=== PATIENT | female | born 2000 | race Caucasian/White ===

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

== ENCOUNTER 2019-07-19 13:53 | Emergency (ER) | payer MEDICAID ==
[~2019-07-19] VITALS: Ht 165 cm; Wt 69.8 kg
[2019-07-19 14:32] LABS: BASOPHILS % (AUTO) 0 % (0-10); EOSINOPHILS # (AUTO) 0.1 10^3/uL (0.0-0.3); EOSINOPHILS % (AUTO) 1 % (0-10); HEMATOCRIT 38 % (35-52); LYMPHOCYTES # (AUTO) 1.8 X 10^3 (1.0-4.0); LYMPHOCYTES % (AUTO) 19 % (12-44); MEAN CORPUSCULAR HEMOGLOBIN 30 PG (25-34); MEAN CORPUSCULAR HGB CONC 34 G/DL (32-36); MEAN CORPUSCULAR VOLUME 88 FL (80-99); MEAN PLATELET VOLUME 9.9 FL (7.4-10.4); MONOCYTES # (AUTO) 1.1 X 10^3 (0.0-1.0); MONOCYTES % (AUTO) 11 % (0-12); NEUTROPHILS # (AUTO) 6.4 X 10^3 (1.8-7.8); NEUTROPHILS % (AUTO) 69 % (42-75); PLATELET COUNT 285 10^3/uL (130-400); WHITE BLOOD COUNT 9.3 10^3/uL (4.3-11.0)
[2019-07-19 14:40] LABS: BACTERIA,URINE LARGE /HPF; BILIRUBIN,URINE NEGATIVE (NEGATIVE); CLARITY,URINE SL CLOUDY; COLOR,URINE YELLOW; GLUCOSE, URINE (UA) NEGATIVE (NEGATIVE); KETONES,URINE NEGATIVE (NEGATIVE); LEUKOCYTE ESTERASE ,URINE 3+ (NEGATIVE); NITRITE,URINE POSITIVE (NEGATIVE); PH,URINE 5 (5-9); PROTEIN,URINE 1+ (NEGATIVE); RBC,URINE RARE /HPF; UROBILINOGEN,URINE NORMAL (NORMAL); WBC,URINE 50-100 /HPF
[2019-07-19 14:47] LABS: ALANINE AMINOTRANSFERASE 18 U/L (0-55); ALBUMIN 4.3 GM/DL (3.2-4.5); ALKALINE PHOSPHATASE 90 U/L (40-136); BILIRUBIN,TOTAL 1.2 MG/DL (0.1-1.0); BUN/CREATININE RATIO 12; CALCIUM 9.2 MG/DL (8.5-10.1); CARBON DIOXIDE 27 MMOL/L (21-32); CHLORIDE 102 MMOL/L (98-107); CREATININE SERUM 0.67 MG/DL (0.60-1.30); GFR ESTIMATED > 60; GLUCOSE 78 MG/DL (70-105); POTASSIUM 3.5 MMOL/L (3.6-5.0); SODIUM 136 MMOL/L (135-145); TOTAL PROTEIN 7.5 GM/DL (6.4-8.2)
--- NOTE | 2019-07-19 15:28 | ED GU-Female ---
General Chief Complaint: Abdominal/GI Problems Stated Complaint: L SIDE PAIN Nursing Triage Note: PATIENT HERE BY POV FOR CONCERNS ABOUT LEFT LOWER QUADRANT PAIN THAT RAD TO HER BACK. SHE HAS TAKEN IBUPROFEN AND TYLENOL FOR THE PAIN. THE PAIN COMES AND GOES. SHE NORMALLY HAS BM DAILY BUT HAS NOT HAD ONE IN 2 DAYS. SHE STATES SHE RECENTLY HAD A YEAST INFECTION AND FINISHED ANTIBIOTICS FOR THAT A WEEK AGO. SHE ADMITS TO FOUL SMELLING AND DARK URINE AND BURNING WITH URINATION. Nursing Sepsis Screen: No Definite Risk Source: patient Exam Limitations: no limitations History of Present Illness Date Seen by Provider: Jul 19, 2019 Time Seen by Provider: 15:28 Initial Comments 19-year-old female patient presents with complaints of left lower quadrant pain radiating into her right flank and right back. Patient reports taking ibuprofen and Tylenol for pain earlier today. Pain is intermittent. Patient reports not having a bowel movement for 2 days. Patient was recently treated for a urinary tract infection and vaginal yeast infection. She does report also having a pelvic exam with cultures done at [facility] 1 week ago. Patient states the pelvic CULTURES were negative. she does c/o foul smelling, dark urine. also c/o dysuria. Timing/Duration: yesterday, intermittent Severity/Quality: aching, sharp Location: LLQ Radiation: back, left flank Activities at Onset: none Sexual [place] History: less than 2 months ago Modifying Factors: Worsens With Movement, Worsens With Palpation Allergies and Home Medications Allergies Coded Allergies: Penicillins (Unverified Allergy, Severe, 11/05/18) Home Medications Cephalexin 500 Mg Capsule, 500 MG PO TID Prescribed by: HA HOANG on 12/25/172043 Cephalexin 500 Mg Tablet, 500 MG PO QID Prescribed by: KEVYN BA on 07/19/19 162 Fluconazole 100 Mg Tablet, 100 MG PO UD 2 tabs po x 1 dose, then 1 tab po daily. Prescribed by: KEVYN BA on 07/19/19 162 Ondansetron 4 Mg Tab.rapdis, 4 MG PO Q6H PRN for NAUSEA/VOMITING Prescribed by: KEVYN BA on 07/19/19 162 Phenazopyridine HCl 100 Mg Tablet, 100 MG PO TID PRN for pain Prescribed by: KEVYN BA on 07/19/19 162 Sulfamethoxazole/Trimethoprim 1 Each Tablet, 1 EACH PO BID Prescribed by: HA HOANG on 12/25/172043 Sulfamethoxazole/Trimethoprim 1 Each Tablet, 1 EACH PO BID Prescribed by: DENITA SAEED on 11/05/18 0124 Patient Home Medication List Home Medication List Reviewed: Yes Review of Systems Review of Systems Constitutional: no symptoms reported EENTM: no symptoms reported Respiratory: No cough, No phlegm, No short of breath, No wheezing Cardiovascular: No chest pain, No palpitations, No syncope Gastrointestinal: see HPI, abdominal pain, constipation; No diarrhea, No hematemesis; loss of appetite, nausea; No vomiting Genitourinary: see HPI Musculoskeletal: see HPI Skin: no symptoms reported Psychiatric/Neurological: No Symptoms Reported All Other Systemes Reviewed Negative Unless Noted: Yes (Negative excepted noted.) Past Emwxkol-Tknzia-Zvltmo Hx Past Med/Social Hx: Reviewed Nursing Past Med/Soc Hx Patient Social History Alcohol Use: Denies Use Recreational Drug Use: No Smoking Status: Current Everyday Smoker Type Used: Cigarettes 2nd Hand Smoke Exposure: Yes Recent Foreign Travel: No Contact w/Someone Who Travel: No Recent Infectious Disease Expo: No Recent Hopitalizations: No Physical Abuse: No Sexual Abuse: No Immunizations Up To Date PED Vaccines UTD: Yes Seasonal Allergies Seasonal Allergies: No Past Medical History Surgeries: No Respiratory: No Cardiac: No Neurological: No : No Reproductive Disorders: No Female Reproductive Disorders: Denies Sexually Transmitted Disease: No HIV/AIDS: No Genitourinary: No Gastrointestinal: No Musculoskeletal: No Endocrine: No HEENT: No Cancer: No Psychosocial: Yes Anxiety, Bipolar, Depression Integumentary: No Blood Disorders: No Adverse Reaction/Blood Tranf: No Family Medical History Reviewed Nursing Family Hx Colon cancer 19 MOTHER (LIVER CANCER) Diabetes mellitus 19 MOTHER Hypertension 19 MOTHER No Family History of: AIDS Abdominal aortic aneurysm [place]'s disease Alcoholism Alzheimer's disease Aphasia Arthritis Asthma Cancer of mouth Cardiovascular disease Cataracts Completed stroke Congenital disease Congenital heart disease Coronary thrombosis Cystic fibrosis Deafness or hearing loss Dementia Drug abuse Dysphasia Fibrocystic disease of breast Gastroenteritis Glaucoma Headache disorder Hypercholesterolemia Infertility Kidney disease Myocardial infarction Neoplasm Not obtainable due to adoption Osteoporosis Parkinson's disease Prostate cancer Psychosocial problem Respiratory disorder Seizure disorder Severe allergy Thyroid disease Tuberculosis Visual disorder No Pertinent Family Hx Physical Exam Vital Signs Vital Signs - First Documented 07/19/19 14:09 Temp 36.9 Pulse 94 Resp 18 B/P (MAP) 122/76 (91) Pulse Ox 99 Capillary Refill : Less Than 3 Seconds Height, Weight, BMI Height: 5'5.00" Weight: 130lbs. oz. 58.700740lj; 25.00 BMI Method:Stated General Appearance: WD/WN, no apparent distress HEENT: PERRL/EOMI, pharynx normal Neck: supple, normal inspection Cardiovascular: normal peripheral pulses, regular rate, rhythm, no edema, no gallop, no murmur Respiratory: lungs clear, normal breath sounds, no respiratory distress, no accessory muscle use Gastrointestinal: normal bowel sounds, soft, no organomegaly; No distended; guarding (LLQ, LUQ, and left flank); No rebound; tenderness (LLQ, LUQ, and left flank); No hernia, No mass Back: normal inspection, no vertebral tenderness; No CVA tenderness (R); CVA tenderness (L) Extremities: no pedal edema, no calf tenderness, normal capillary refill Neurologic/Psychiatric: alert, normal mood/affect, oriented x 3 Skin: normal color, warm/dry Progress/Results/Core Measures Suspected Sepsis Recent Fever Within 48 Hours: No Infection Criteria Present: Suspected New Infection New/Unexplained Altered Menta: No Sepsis Screen: No Definite Risk SIRS Temperature: Pulse: 94 Respiratory Rate: 18 Laboratory Tests 07/19/19 14:20: White Blood Count 9.3 Blood Pressure 122 /76 Mean: 91 Laboratory Tests 07/19/19 14:20: Creatinine 0.67, Platelet Count 285, Total Bilirubin 1.2H Results/Orders Lab Results Laboratory Tests Test 07/19/19 14:15 07/19/19 14:20 Range/Units Urine Color YELLOW Urine Clarity [place] CL[place]DY Urine pH 5 5-9 Urine Specific [place] 1.015 L 1.016-1.022 Urine Protein 1+ H NEGATIVE Urine Glucose (UA) NEGATIVE NEGATIVE Urine Ketones NEGATIVE NEGATIVE Urine Nitrite POSITIVE H NEGATIVE Urine Bilirubin NEGATIVE NEGATIVE Urine Urobilinogen NORMAL NORMAL MG/DL Urine Leukocyte Esterase 3+ H NEGATIVE Urine RBC (Auto) 2+ H NEGATIVE Urine RBC RARE /HPF Urine WBC 50-100 H /HPF Urine Squamous Epithelial Cells 5-10 /HPF Urine Crystals NONE /LPF Urine Bacteria LARGE H /HPF Urine Casts NONE /LPF Urine Mucus NEGATIVE /LPF Urine Culture Indicated YES Urine Test NEGATIVE NEGATIVE White Blood Count 9.3 4.3-11.0 10^3/uL Red Blood Count 4.35 4.35-5.85 10^6/uL Hemoglobin 13.0 11.5-16.0 G/DL Hematocrit 38 35-52 % Mean Corpuscular Volume 88 80-99 FL Mean Corpuscular Hemoglobin 30 25-34 PG Mean Corpuscular Hemoglobin Concent 34 32-36 G/DL Red Cell Distribution Width 12.0 10.0-14.5 % Platelet Count 285 130-400 10^3/uL Mean Platelet Volume 9.9 7.4-10.4 FL Neutrophils (%) (Auto) 69 42-75 % Lymphocytes (%) (Auto) 19 12-44 % Monocytes (%) (Auto) 11 0-12 % Eosinophils (%) (Auto) 1 0-10 % Basophils (%) (Auto) 0 0-10 % Neutrophils # (Auto) 6.4 1.8-7.8 X 10^3 Lymphocytes # (Auto) 1.8 1.0-4.0 X 10^3 Monocytes # (Auto) 1.1 H 0.0-1.0 X 10^3 Eosinophils # (Auto) 0.1 0.0-0.3 10^3/uL Basophils # (Auto) 0.0 0.0-0.1 10^3/uL Sodium Level 136 135-145 MMOL/L Potassium Level 3.5 L 3.6-5.0 MMOL/L Chloride Level 102 98-107 MMOL/L Carbon Dioxide Level 27 21-32 MMOL/L Anion Gap 7 5-14 MMOL/L Blood Urea Nitrogen 8 7-18 MG/DL Creatinine 0.67 0.60-1.30 MG/DL Estimat Glomerular Filtration Rate > 60 BUN/Creatinine Ratio 12 Glucose Level 78 70-105 MG/DL Calcium Level 9.2 8.5-10.1 MG/DL Corrected Calcium 9.0 8.5-10.1 MG/DL Total Bilirubin 1.2 H 0.1-1.0 MG/DL Aspartate Amino Transf (AST/SGOT) 18 5-34 U/L Alanine Aminotransferase (ALT/SGPT) 18 0-55 U/L Alkaline Phosphatase 90 40-136 U/L Total Protein 7.5 6.4-8.2 GM/DL Albumin 4.3 3.2-4.5 GM/DL My Orders Orders - KEVYN BA Ua Culture If Indicated (07/19/19 14:20) Hcg,Qualitative Urine (07/19/19 14:26) Ed Iv/Invasive Line Start (07/19/19 14:27) Cbc With Automated Diff (07/19/19 14:27) Comprehensive Metabolic Panel (07/19/19 14:27) Urine Culture (07/19/19 14:15) Ct Abd/Pelvis Wo(Kidney Stone) (07/19/19 15:39) Ns Iv 1000 Ml (Sodium Chloride 0.9%) (07/19/19 15:39) Ondansetron Injection (Zofran Injectio (07/19/19 15:45) Ketorolac Injection (Toradol Injection) (07/19/19 15:39) Medications Given in ED Current Medications Medications Dose Ordered Sig/Jose Route Start Time Stop Time Status Last Admin Dose Admin Ondansetron HCl 4 mg ONCE ONCE IVP 07/19/19 15:45 07/19/19 15:46 DC 07/19/19 15:46 4 MG Sodium Chloride 1,000 ml @ 0 mls/hr Q0M ONCE IV 07/19/19 15:39 07/19/19 15:42 DC 07/19/19 15:46 0 MLS/HR Vital Signs/I&O 07/19/19 07/19/19 14:09 16:39 Temp 36.9 36.9 Pulse 94 94 Resp 18 18 B/P (MAP) 122/76 (91) 122/76 (91) Pulse Ox 99 99 Capillary Refill : Less Than 3 Seconds Blood Pressure Mean: 91 Diagnostic Imaging Diagonstic Imaging: CT Plain Films/CT/US/NM/MRI: abdomen, pelvis Comments Date of Exam:07/19/19 CT ABD/PELVIS WO(KIDNEY STONE) PROCEDURE: CT urinary tract, rule out kidney stone. TECHNIQUE: Multiple contiguous axial images were obtained through the abdomen and pelvis without the use of intravenous contrast. Auto Exposure Controls were utilized during the CT exam to meet ALARA standards for radiation dose reduction. INDICATION: Left lower quadrant pain Lung bases are clear. Liver appears normal. Gallbladder is surgically absent. Pancreas appears normal. Spleen is not enlarged. Adrenals are normal. Kidneys appear normal. Small bowel is not dilated. The colon appears normal. There is no intraperitoneal free air or free fluid. Uterus is present. Adnexa are unremarkable. IMPRESSION: No acute abnormality seen in the abdomen or pelvis Dictated by: Dictated on workstation # [id number] Reviewed: Reviewed by Me (radiology report reviewed by me) Departure Communication (Admissions) Patient seen and evaluated. Lab and a CT abdomen/pelvis obtained. Diagnostic and laboratory findings discussed with the patient. Patient reports improvement in symptoms with medications and fluids. Plan for discharge to home with follow-up as an outpatient with her primary care provider. Impression Primary Impression: Urinary tract infection Qualified Codes: N30.00 - Acute cystitis without hematuria Additional Impressions: Candidal vulvovaginitis Abdominal pain, left lateral Disposition: HOME, SELF-CARE Condition: Improved Departure-Patient Inst. Decision time for Depature: 16:17 Referrals: [facility] (PCP/Family) Primary Care Physician Patient Instructions: Acute Abdomen (Belly Pain), Adult (DC), Control Options, Condom Options, Urinary Tract Infection, Adult (DC), Yeast Infection (DC) Add. Discharge Instructions: All discharge instructions reviewed with patient and/or family. Voiced understanding. Medications as directed. Tylenol over the counter as directed for pain. Ibuprofen 600 mg by mouth every 6-8 hours as needed for pain. Colace stool softener 2-3 times per day as needed for constipation. Eat a high fiber diet. Drink plenty of fluids. Follow-up with your family practitioner for recheck and to discuss contraceptive options as an outpatient. Call Monday morning for an appointment time. Return to the emergency department for worsened symptoms or any other concerns. Scripts Fluconazole (Fluconazole) 100 Mg Tablet 100 MG PO UD, #11 TAB 0 Refills 2 tabs po x 1 dose, then 1 tab po daily. Prov: KEVYN BA 07/19/19 Cephalexin (Cephalexin) 500 Mg Tablet 500 MG PO QID, #14 TAB 0 Refills Prov: KEVYN BA 07/19/19 Ondansetron (Ondansetron Odt) 4 Mg Tab.rapdis 4 MG PO Q6H PRN for NAUSEA/VOMITING, #8 TAB 0 Refills Prov: KEVYN BA 07/19/19 Phenazopyridine HCl (Pyridium) 100 Mg Tablet 100 MG PO TID PRN for pain, #14 TAB 0 Refills Prov: KEVYN BA 07/19/19 KEVYN BA Jul 19, 2019 15:28
[2019-07-19] MEDS ORDERED: KETOROLAC 30 MG/ML VIAL IVP STA (15:39)
[2019-07-19] MEDS ORDERED: NS IV 1000 ML 1,000 ML IV ONE (15:39)
[2019-07-19] MEDS ORDERED: ONDANSETRON 4 MG/2 ML (SDV) Z0FRAN IVP ONE (15:45)
--- NOTE | 2019-07-19 16:12 | Diagnostic Imaging Report ---
PROCEDURE: CT urinary tract, rule out kidney stone. TECHNIQUE: Multiple contiguous axial images were obtained through the abdomen and pelvis without the use of intravenous contrast. Auto Exposure Controls were utilized during the CT exam to meet ALARA standards for radiation dose reduction. INDICATION: Left lower quadrant pain Lung bases are clear. Liver appears normal. Gallbladder is surgically absent. Pancreas appears normal. Spleen is not enlarged. Adrenals are normal. Kidneys appear normal. Small bowel is not dilated. The colon appears normal. There is no intraperitoneal free air or free fluid. Uterus is present. Adnexa are unremarkable. IMPRESSION: No acute abnormality seen in the abdomen or pelvis Dictated by: Dictated on workstation # [id number]
[2019-07-19] MEDS ORDERED: PHEN-639 PO (16:20)
[2019-07-19] MEDS ORDERED: CEPH500T PO ×2 (16:20→16:21)
[2019-07-19] MEDS ORDERED: ONDA4TAB11 PO (16:20)
[2019-07-19] MEDS ORDERED: FLUC100T6 PO (16:21)
[2019-07-19 16:39] VITALS: BP 122/76
== END 2019-07-19 16:43 | disposition home or self-care (01) ==
LOC: EDUNIT# 13:53 → ER 13:55
DX: N39.0 Urinary tract infection, site not specified (principal); B37.3 Candidiasis of vulva and vagina; F41.9 Anxiety disorder, unspecified; F31.9 Bipolar disorder, unspecified; F17.210 Nicotine dependence, cigarettes, uncomplicated; Z88.0 Allergy status to penicillin; Z80.0 Family history of malignant neoplasm of digestive organs; Z82.49 Family history of ischemic heart disease and other diseases of the circulatory system
CPT/HCPCS: 36415; 74176; 80053; 81000; 84703; 85025; 87077; 87088; 87186; 96361; 96374; 96375

== ENCOUNTER 2019-10-05 15:06 | Emergency (ER) | payer MEDICAID ==
[~2019-10-05] VITALS: Ht 167 cm; Wt 71.2 kg
[~2019-10-05 15:06] MED LIST changes: +CEPH500T PO; +FLUC100T6 PO; +ONDA4TAB11 PO; +PHEN-639 PO
[2019-10-05 15:32] LABS: BILIRUBIN,URINE NEGATIVE (NEGATIVE); CLARITY,URINE CLEAR; COLOR,URINE YELLOW; GLUCOSE, URINE (UA) NEGATIVE (NEGATIVE); KETONES,URINE NEGATIVE (NEGATIVE); LEUKOCYTE ESTERASE ,URINE NEGATIVE (NEGATIVE); NITRITE,URINE NEGATIVE (NEGATIVE); PROTEIN,URINE NEGATIVE (NEGATIVE)
[2019-10-05 15:38] LABS: BACTERIA,URINE TRACE /HPF; WBC,URINE RARE /HPF
--- NOTE | 2019-10-05 15:38 | ED GU-Female ---
General Stated Complaint: VOMITING / ABD PAIN Source: patient Exam Limitations: no limitations History of Present Illness Date Seen by Provider: Oct 05, 2019 Time Seen by Provider: 15:33 Initial Comments To ER with vomiting, periumbilical abdominal cramping that feels similar. Pains, she is on her menstrual period. She also has some right flank pain and nausea since last night. Timing/Duration: just prior to arrival Severity/Quality: moderate Radiation: none Activities at Onset: none Prior Genitourinary Problems: none Associated Symptoms: abdominal pain; No dysuria; nausea/vomiting Allergies and Home Medications Allergies Coded Allergies: Penicillins (Unverified Allergy, Severe, 11/05/18) Home Medications Cephalexin 500 Mg Capsule, 500 MG PO TID Prescribed by: HA HOANG on 12/25/172043 Cephalexin 500 Mg Tablet, 500 MG PO QID Prescribed by: KEVYN BA on 07/19/191620 Fluconazole 100 Mg Tablet, 100 MG PO UD 2 tabs po x 1 dose, then 1 tab po daily. Prescribed by: KEVYN BA on 07/19/19 162 Ondansetron 4 Mg Tab.rapdis, 4 MG PO Q6H PRN for NAUSEA/VOMITING Prescribed by: KEVYN BA on 07/19/19 162 Phenazopyridine HCl 100 Mg Tablet, 100 MG PO TID PRN for pain Prescribed by: KEVYN BA on 07/19/19 162 Sulfamethoxazole/Trimethoprim 1 Each Tablet, 1 EACH PO BID Prescribed by: HA HOANG on 12/25/172043 Sulfamethoxazole/Trimethoprim 1 Each Tablet, 1 EACH PO BID Prescribed by: DENITA SAEED on 11/05/18 0124 Patient Home Medication List Home Medication List Reviewed: Yes Review of Systems Review of Systems Constitutional: see HPI EENTM: see HPI Respiratory: no symptoms reported Cardiovascular: no symptoms reported Genitourinary: see HPI Musculoskeletal: no symptoms reported Skin: no symptoms reported Psychiatric/Neurological: No Symptoms Reported Past Cakilqa-Cmobac-Ohwiqq Hx Patient Social History Type Used: Cigarettes 2nd Hand Smoke Exposure: Yes Recent Foreign Travel: No Contact w/Someone Who Travel: No Recent Hopitalizations: No Immunizations Up To Date PED Vaccines UTD: Yes Seasonal Allergies Seasonal Allergies: No Past Medical History Surgeries: No Respiratory: No Cardiac: No Neurological: No Reproductive Disorders: No Female Reproductive Disorders: Denies Sexually Transmitted Disease: No HIV/AIDS: No Genitourinary: No Gastrointestinal: No Musculoskeletal: No Endocrine: No HEENT: No Cancer: No Psychosocial: Yes Anxiety, Bipolar, Depression Integumentary: No Blood Disorders: No Adverse Reaction/Blood Tranf: No Family Medical History Colon cancer 19 MOTHER (LIVER CANCER) Diabetes mellitus 19 MOTHER Hypertension 19 MOTHER No Family History of: AIDS Abdominal aortic aneurysm Adal's disease Alcoholism Alzheimer's disease Aphasia Arthritis Asthma Cancer of mouth Cardiovascular disease Cataracts Completed stroke Congenital disease Congenital heart disease Coronary thrombosis Cystic fibrosis Deafness or hearing loss Dementia Drug abuse Dysphasia Fibrocystic disease of breast Gastroenteritis Glaucoma Headache disorder Hypercholesterolemia Infertility Kidney disease Myocardial infarction Neoplasm Not obtainable due to adoption Osteoporosis Parkinson's disease Prostate cancer Psychosocial problem Respiratory disorder Seizure disorder Severe allergy Thyroid disease Tuberculosis Visual disorder No Pertinent Family Hx Physical Exam Vital Signs Vital Signs - First Documented 10/05/19 15:15 Temp 37.0 Pulse 84 Resp 14 B/P (MAP) 118/83 (95) Pulse Ox 98 O2 Delivery Room Air Capillary Refill : Height, Weight, BMI Height: 5'5.00" Weight: 130lbs. oz. 58.154194uz; 25.00 BMI Method:Stated General Appearance: WD/WN, no apparent distress Neck: non-tender, full range of motion Respiratory: no respiratory distress, no accessory muscle use Gastrointestinal: normal bowel sounds, non tender, soft Extremities: normal range of motion, non-tender Neurologic/Psychiatric: alert, normal mood/affect, oriented x 3 Skin: normal color, warm/dry Progress/Results/Core Measures Suspected Sepsis SIRS Temperature: Pulse: Respiratory Rate: Laboratory Tests 10/05/19 15:37: White Blood Count 9.8 Blood Pressure / Mean: Laboratory Tests 10/05/19 15:37: Creatinine 0.69, Platelet Count 315, Total Bilirubin 1.5H Results/Orders Lab Results Laboratory Tests Test 10/05/19 15:21 10/05/19 15:37 Range/Units Urine Color YELLOW Urine Clarity CLEAR Urine pH 7.0 5-9 Urine Specific [place] 1.020 1.016-1.022 Urine Protein NEGATIVE NEGATIVE Urine Glucose (UA) NEGATIVE NEGATIVE Urine Ketones NEGATIVE NEGATIVE Urine Nitrite NEGATIVE NEGATIVE Urine Bilirubin NEGATIVE NEGATIVE Urine Urobilinogen 0.2 < = 1.0 MG/DL Urine Leukocyte Esterase NEGATIVE NEGATIVE Urine RBC (Auto) 3+ H NEGATIVE Urine RBC 2-5 H /HPF Urine WBC RARE /HPF Urine Squamous Epithelial Cells 2-5 /HPF Urine Crystals NONE /LPF Urine Bacteria TRACE /HPF Urine Casts NONE /LPF Urine Mucus SMALL H /LPF Urine Culture Indicated NO Urine Test NEGATIVE NEGATIVE White Blood Count 9.8 4.3-11.0 10^3/uL Red Blood Count 4.75 4.35-5.85 10^6/uL Hemoglobin 13.9 11.5-16.0 G/DL Hematocrit 42 35-52 % Mean Corpuscular Volume 87 80-99 FL Mean Corpuscular Hemoglobin 29 25-34 PG Mean Corpuscular Hemoglobin Concent 34 32-36 G/DL Red Cell Distribution Width 12.7 10.0-14.5 % Platelet Count 315 130-400 10^3/uL Mean Platelet Volume 10.1 7.4-10.4 FL Neutrophils (%) (Auto) 67 42-75 % Lymphocytes (%) (Auto) 22 12-44 % Monocytes (%) (Auto) 9 0-12 % Eosinophils (%) (Auto) 1 0-10 % Basophils (%) (Auto) 0 0-10 % Neutrophils # (Auto) 6.6 1.8-7.8 X 10^3 Lymphocytes # (Auto) 2.2 1.0-4.0 X 10^3 Monocytes # (Auto) 0.9 0.0-1.0 X 10^3 Eosinophils # (Auto) 0.1 0.0-0.3 10^3/uL Basophils # (Auto) 0.0 0.0-0.1 10^3/uL Sodium Level 137 135-145 MMOL/L Potassium Level 4.0 3.6-5.0 MMOL/L Chloride Level 105 98-107 MMOL/L Carbon Dioxide Level 21 21-32 MMOL/L Anion Gap 11 5-14 MMOL/L Blood Urea Nitrogen 11 7-18 MG/DL Creatinine 0.69 0.60-1.30 MG/DL Estimat Glomerular Filtration Rate > 60 BUN/Creatinine Ratio 16 Glucose Level 104 70-105 MG/DL Calcium Level 9.1 8.5-10.1 MG/DL Corrected Calcium 8.8 8.5-10.1 MG/DL Total Bilirubin 1.5 H 0.1-1.0 MG/DL Aspartate Amino Transf (AST/SGOT) 16 5-34 U/L Alanine Aminotransferase (ALT/SGPT) 14 0-55 U/L Alkaline Phosphatase 77 40-136 U/L Total Protein 7.2 6.4-8.2 GM/DL Albumin 4.4 3.2-4.5 GM/DL My Orders Orders - HA HOANG APRN Hcg,Qualitative Urine (10/05/19 15:31) Cbc With Automated Diff (10/05/19 15:31) Comprehensive Metabolic Panel (10/05/19 15:31) Ondansetron Oral Dissolve Tab (Zofran (10/05/19 15:45) Drug Screen Stat (Urine) (10/05/19 16:11) Medications Given in ED Current Medications Medications Dose Ordered Sig/Jose Route Start Time Stop Time Status Last Admin Dose Admin Ondansetron HCl 8 mg ONCE ONCE PO 10/05/19 15:45 10/05/19 15:46 DC 10/05/19 15:41 8 MG Vital Signs/I&O 10/05/19 15:15 Temp 37.0 Pulse 84 Resp 14 B/P (MAP) 118/83 (95) Pulse Ox 98 O2 Delivery Room Air Capillary Refill : Departure Impression Primary Impression: Nausea Additional Impression: Menstrual pain Disposition: 01 HOME, SELF-CARE Condition: Improved Departure-Patient Inst. Decision time for Depature: 16:13 Referrals: [facility] (PCP/Family) Primary Care Physician Patient Instructions: Menstrual Cramps (DC), Nausea and Vomiting, Adult Add. Discharge Instructions: . Tylenol and ibuprofen for pain control 2. Return to ER for any concerns 3. Follow-up with your doctor next week Scripts Ondansetron (Ondansetron Odt) 4 Mg Tab.rapdis 4 MG PO Q6H PRN for NAUSEA/VOMITING, #8 TAB 0 Refills Prov: HA HOANG APRN 10/05/19 HA HOANG APRN Oct 05, 2019 15:38
[2019-10-05 15:45] LABS: BASOPHILS % (AUTO) 0 % (0-10); EOSINOPHILS # (AUTO) 0.1 10^3/uL (0.0-0.3); EOSINOPHILS % (AUTO) 1 % (0-10); HEMATOCRIT 42 % (35-52); HEMOGLOBIN 13.9 G/DL (11.5-16.0); LYMPHOCYTES # (AUTO) 2.2 X 10^3 (1.0-4.0); LYMPHOCYTES % (AUTO) 22 % (12-44); MEAN CORPUSCULAR HEMOGLOBIN 29 PG (25-34); MEAN CORPUSCULAR HGB CONC 34 G/DL (32-36); MEAN CORPUSCULAR VOLUME 87 FL (80-99); MEAN PLATELET VOLUME 10.1 FL (7.4-10.4); MONOCYTES # (AUTO) 0.9 X 10^3 (0.0-1.0); MONOCYTES % (AUTO) 9 % (0-12); NEUTROPHILS # (AUTO) 6.6 X 10^3 (1.8-7.8); NEUTROPHILS % (AUTO) 67 % (42-75); PLATELET COUNT 315 10^3/uL (130-400); RED CELL DISTRIBUTION WIDTH 12.7 % (10.0-14.5); WHITE BLOOD COUNT 9.8 10^3/uL (4.3-11.0)
[2019-10-05] MEDS ORDERED: ONDANSETRON 4 MG (ZOFRAN) ORAL DISSOLVE TAB PO ONE (15:45)
[2019-10-05 16:04] LABS: ALANINE AMINOTRANSFERASE 14 U/L (0-55); ALBUMIN 4.4 GM/DL (3.2-4.5); ALKALINE PHOSPHATASE 77 U/L (40-136); BILIRUBIN,TOTAL 1.5 MG/DL (0.1-1.0); BUN/CREATININE RATIO 16; CALCIUM 9.1 MG/DL (8.5-10.1); CARBON DIOXIDE 21 MMOL/L (21-32); CHLORIDE 105 MMOL/L (98-107); CREATININE SERUM 0.69 MG/DL (0.60-1.30); GFR ESTIMATED > 60; GLUCOSE 104 MG/DL (70-105); SODIUM 137 MMOL/L (135-145); TOTAL PROTEIN 7.2 GM/DL (6.4-8.2)
[2019-10-05] MEDS ORDERED: ONDA4TAB11 PO (16:14)
[2019-10-05 16:21] VITALS: BP 118/83
[2019-10-05 16:30] LABS: AMPHETAMINE SCREEN, URINE POSITIVE (NEGATIVE); BARBITURATE SCREEN URINE NEGATIVE (NEGATIVE); BENZODIAZEPINES SCREEN URINE NEGATIVE (NEGATIVE); CANNABINOID SCREEN, URINE POSITIVE (NEGATIVE); COCAINE SCREEN URINE NEGATIVE (NEGATIVE); METHADONE STAT NEGATIVE (NEGATIVE); METHAMPHETAMINE SCREEN URINE S POSITIVE (NEGATIVE); OPIATE SCREEN URINE NEGATIVE (NEGATIVE); OXYCODONE STAT NEGATIVE (NEGATIVE); PROPOXYPHENE STAT NEGATIVE (NEGATIVE); TRICYCLIC ANTIDEPRESSANTS SCRE NEGATIVE (NEGATIVE)
== END 2019-10-05 16:22 | disposition home or self-care (01) ==
LOC: EDUNIT# 15:06 → ER 15:07
DX: N94.6 Dysmenorrhea, unspecified (principal); R11.2 Nausea with vomiting, unspecified; F41.9 Anxiety disorder, unspecified; F31.9 Bipolar disorder, unspecified; Z88.0 Allergy status to penicillin; Z77.22 Contact with and (suspected) exposure to environmental tobacco smoke (acute) (chronic); Z82.49 Family history of ischemic heart disease and other diseases of the circulatory system; Z80.0 Family history of malignant neoplasm of digestive organs
CPT/HCPCS: 36415; 80053; 80306; 81000; 84703; 85025; 99283

== ENCOUNTER 2023-05-29 15:23 | Inpatient (IN) | payer MEDICAID ==
[~2023-05-29] VITALS: Ht 168 cm; Wt 65.2 kg
[~2023-05-29 15:23] MED LIST changes: +ARIP15TA20; -ARIP15TA9; +FLUC100T10 PO; -FLUC100T6 PO; -FLUO20CA25; +FLUO20CA48; -SULF1TAB35 PO; +SULF1TAB38 PO
--- NOTE | 2023-05-29 15:51 | ED EENT ---
History of Present Illness General Chief Complaint: Dental Problems/Pain Stated Complaint: SORE THROAT Nursing Triage Note: PT AMB TO [facility] PT CO OF DENTAL PAIN ON L LOWER JAW, STATES HAS APPT FOR 06/07 FOR DENTIST PT L SIDE FACE SWOLLEN, WARM AND PAINFUL 04/17 Source: patient Exam Limitations: no limitations (JON GUTIERREZ APRN) History of Present Illness Date Seen by Provider: May 29, 2023 Time Seen by Provider: 15:40 Initial Comments 23-year-old female presents to the ER with complaint of left-sided facial swelling. She has been dealing with left lower dental pain for the last week. She was prescribed an antibiotic on 05/24/2023 which she has been taking. She reports that the swelling increased significantly since yesterday. The area is hard to the touch and warm to the touch. She reports difficulty swallowing. She denies known fevers. States she has been using ice packs, and taking Tylenol and ibuprofen as well as the antibiotic. She called Dr. Choe, oral maxillofacial surgeon, who said he can see her tomorrow, but states that will cost her $600 upfront and she does not have the money for this. (JON GUTIERREZ APRN) Initial Comments Patient was admitted to [facility] last week and saw last week, recommended surgery but patient wanted to see the dentist at [facility] due to cost. Patient on Clindamycin outpatient. (FANNY MURRELL) Allergies and Home Medications Allergies Coded Allergies: Penicillins (Unverified Allergy, Severe, 11/05/18) Patient Home Medication List Home Medication List Reviewed: Yes (JON GUTIERREZ APRN) Clindamycin HCl (Clindamycin HCl) 150 Mg Capsule, 300 MG PO QID, (Reported) Entered as Reported by: ALLYSON BORJA on 05/30/23950 Last Action: Reviewed Ibuprofen (Ibuprofen) 600 Mg Tablet, 600 MG PO Q8H PRN for PAIN-MILD (1-4), (Reported) Entered as Reported by: ALLYSON BORJA on 05/30/23950 Last Action: Reviewed Norethindrone (Rachel-Be) 0.35 Mg Tablet, 1 EA PO DAILY, (Reported) Entered as Reported by: ALLYSON BORJA on 8/22/23 0951 Last Action: Reviewed Discontinued Medications Aripiprazole (Aripiprazole) 15 Mg Tablet, (Reported) Discontinued Reason: No Longer Taking Entered as Reported by: RAGHU CASTRO on 12/25/171945 Last Action: Discontinued Cephalexin (Keflex) 500 Mg Capsule, 500 MG PO TID Discontinued Reason: No Longer Taking Prescribed by: HA HOANG on 12/25/172043 Last Action: Discontinued Cephalexin (Cephalexin) 500 Mg Tablet, 500 MG PO QID Discontinued Reason: No Longer Taking Prescribed by: KEVYN BA on 07/19/191620 Last Action: Discontinued Fluconazole (Fluconazole) 100 Mg Tablet, 100 MG PO UD Discontinued Reason: No Longer Taking Prescribed by: KEVYN BA on 07/19/191620 Last Action: Discontinued Fluoxetine HCl (Fluoxetine HCl) 20 Mg Capsule, (Reported) Discontinued Reason: No Longer Taking Entered as Reported by: RAGHU CASTRO on 12/25/171945 Last Action: Discontinued Ondansetron (Ondansetron Odt) 4 Mg Tab.rapdis, 4 MG PO Q6H PRN for NAUSEA/VOMITING Discontinued Reason: No Longer Taking Prescribed by: KEVYN BA on 07/19/191619 Last Action: Discontinued Ondansetron (Ondansetron Odt) 4 Mg Tab.rapdis, 4 MG PO Q6H PRN for NAUSEA/VOMITING Discontinued Reason: No Longer Taking Prescribed by: HA HOANG on 10/05/191613 Last Action: Discontinued Phenazopyridine HCl (Pyridium) 100 Mg Tablet, 100 MG PO TID PRN for pain Discontinued Reason: No Longer Taking Prescribed by: KEVYN BA on 07/19/191619 Last Action: Discontinued Sulfamethoxazole/Trimethoprim (Bactrim Ds Tablet) 1 Each Tablet, 1 EACH PO BID Discontinued Reason: No Longer Taking Prescribed by: HA HOANG on 12/25/172043 Last Action: Discontinued Sulfamethoxazole/Trimethoprim (Bactrim Ds Tablet) 1 Each Tablet, 1 EACH PO BID Discontinued Reason: No Longer Taking Prescribed by: DENITA SAEED on 11/05/18123 Last Action: Discontinued Review of Systems Review of Systems Constitutional: see HPI Mouth: see HPI (JON GUTIERREZ APRN) All Other Systems Reviewed Negative Unless Noted: Yes (FANNY MURRELL) Past Fsunraj-Uuscch-Tqbsgf Hx Patient Social History Tobacco Use?: No Substance use?: No Alcohol Use?: No Pt feels they are or have been: No (JON GUTIERREZ APRN) Immunizations Up To Date PED Vaccines UTD: Yes (JON GUTIERREZ APRN) Seasonal Allergies Seasonal Allergies: No (JON GUTIERREZ APRN) Past Medical History Surgery/Hospitalization HX: PELVIC SURG, ABD SURG, Surgeries: No Gallbladder Respiratory: No Cardiac: No Neurological: No Reproductive Disorders: No Female Reproductive Disorders: Denies Sexually Transmitted Disease: No HIV/AIDS: No Genitourinary: No Gastrointestinal: No Musculoskeletal: No Endocrine: No HEENT: No Cancer: No Psychosocial: Yes Anxiety, Bipolar, Depression Integumentary: No Blood Disorders: No Adverse Reaction/Blood Tranf: No (JON GUTIERREZ APRN) Family Medical History Reviewed Nursing Family Hx (FANNY MURRELL) Colon cancer 19 MOTHER (LIVER CANCER) Diabetes mellitus 19 MOTHER Hypertension 19 MOTHER No Family History of: AIDS Abdominal aortic aneurysm Burleigh's disease Alcoholism Alzheimer's disease Aphasia Arthritis Asthma Cancer of mouth Cardiovascular disease Cataracts Completed stroke Congenital disease Congenital heart disease Coronary thrombosis Cystic fibrosis Deafness or hearing loss Dementia Drug abuse Dysphasia Fibrocystic disease of breast Gastroenteritis Glaucoma Headache disorder Hypercholesterolemia Infertility Kidney disease Myocardial infarction Neoplasm Not obtainable due to adoption Osteoporosis Parkinson's disease Prostate cancer Psychosocial problem Respiratory disorder Seizure disorder Severe allergy Thyroid disease Tuberculosis Visual disorder No Pertinent Family Hx (JON GUTIERREZ APRN) Physical Exam Vital Signs Vital Signs - First Documented 05/29/23 15:29 Temp 36.7 Pulse 102 Resp 18 B/P (MAP) 109/76 (87) Pulse Ox 97 Height, Weight, BMI Height: 5'5.00" Weight: 130lbs. oz. 58.500393vo; 25.00 BMI Method:Stated General Appearance: WD/WN, no apparent distress Mouth/Throat: dental tenderness, other (Port intention, abscess noted to molar, significant swelling, erythema, induration of left lower jaw) Neck: supple, normal inspection Cardiovascular: regular rate, rhythm Respiratory: lungs clear, normal breath sounds, no respiratory distress, no accessory muscle use Neurologic/Psychiatric: alert, normal mood/affect Skin: normal color, warm/dry (JON GUTIERREZ APRN) Vital Signs Vital Signs - First Documented 05/29/23 15:29 Temp 36.7 Pulse 102 Resp 18 B/P (MAP) 109/76 (87) Pulse Ox 97 (HANDYFANNY Cleaning) Progress/Results/Core Measures Results/Orders Lab Results Laboratory Tests Test 05/29/23 16:05 Range/Units White Blood Count 16.2 H 4.3-11.0 10^3/uL Red Blood Count 4.56 3.80-5.11 10^6/uL Hemoglobin 13.5 11.5-16.0 g/dL Hematocrit 41 35-52 % Mean Corpuscular Volume 91 80-99 fL Mean Corpuscular Hemoglobin 30 25-34 pg Mean Corpuscular Hemoglobin Concent 33 32-36 g/dL Red Cell Distribution Width 12.8 10.0-14.5 % Platelet Count 392 130-400 10^3/uL Mean Platelet Volume 9.2 9.0-12.2 fL Immature Granulocyte % (Auto) 1 % Neutrophils (%) (Auto) 75 42-75 % Lymphocytes (%) (Auto) 16 12-44 % Monocytes (%) (Auto) 7 0-12 % Eosinophils (%) (Auto) 1 0-10 % Basophils (%) (Auto) 0 0-10 % Neutrophils # (Auto) 12.2 H 1.8-7.8 10^3/uL Lymphocytes # (Auto) 2.6 1.0-4.0 10^3/uL Monocytes # (Auto) 1.1 H 0.0-1.0 10^3/uL Eosinophils # (Auto) 0.2 0.0-0.3 10^3/uL Basophils # (Auto) 0.1 0.0-0.1 10^3/uL Immature Granulocyte # (Auto) 0.1 0.0-0.1 10^3/uL Neutrophils % (Manual) 74 % Lymphocytes % (Manual) 18 % Monocytes % (Manual) 5 % Eosinophils % (Manual) 2 % Basophils % (Manual) 1 % Platelet Estimate ADEQUATE Blood Morphology Comment NORMAL Sodium Level 139 135-145 MMOL/L Potassium Level 4.0 3.6-5.0 MMOL/L Chloride Level 104 98-107 MMOL/L Carbon Dioxide Level 27 21-32 MMOL/L Anion Gap 8 5-14 MMOL/L Blood Urea Nitrogen 8 7-18 MG/DL Creatinine 0.71 0.60-1.30 MG/DL Estimat Glomerular Filtration Rate 122 BUN/Creatinine Ratio 11 Glucose Level 93 70-105 MG/DL Lactic Acid Level 0.69 0.50-2.00 MMOL/L Calcium Level 9.6 8.5-10.1 MG/DL Corrected Calcium 9.5 8.5-10.1 MG/DL Total Bilirubin 1.1 H 0.1-1.0 MG/DL Aspartate Amino Transf (AST/SGOT) 14 5-34 U/L Alanine Aminotransferase (ALT/SGPT) 26 0-55 U/L Alkaline Phosphatase 77 40-136 U/L Total Protein 7.1 6.4-8.2 GM/DL Albumin 4.1 3.2-4.5 GM/DL Serum Test, Qualitative NEGATIVE NEGATIVE My Orders Orders - JON GUTIERREZ APRN Ct Neck (Soft Tissue) W (05/29/23 15:55) Cbc With Automated Diff (05/29/23 15:55) Comprehensive Metabolic Panel (05/29/23 15:55) Blood Culture (05/29/23 15:55) Ed Iv/Invasive Line Start (05/29/23 15:55) Vital Signs Adult Sepsis Patie Q15M (05/29/23 15:55) Lactic Acid Analyzer (05/29/23 15:55) Ns Iv 1000 Ml (Sodium Chloride 0.9%) (05/29/23 16:00) Monitor-Rhythm Ecg Trace Only (05/29/23 16:02) Manual Differential (05/29/23 16:05) Iohexol Injection (Omnipaque 350 Mg/Ml 1 (05/29/23 16:45) Ns (Ivpb) 100 Ml (Sodium Chloride 0.9% 1 (05/29/23 16:45) Dexamethasone Injection (Dexamethasone (05/29/23 16:45) Ceftriaxone Injection (Ceftriaxone Injec (05/29/23 17:00) Metronidazole 500mg/100ml Ivpb (Metronid (05/29/23 17:00) Medications Given in ED Current Medications Medications Dose Ordered Sig/Jose Route Start Time Stop Time Status Last Admin Dose Admin Ceftriaxone Sodium 2000 mg/ Sodium Chloride 50 ml @ 100 mls/hr ONCE ONCE IV 05/29/23 17:00 05/29/23 17:29 DC 05/29/23 17:16 100 MLS/HR Dexamethasone Sodium Phosphate 10 mg ONCE ONCE IV 05/29/23 16:45 05/29/23 16:46 DC 05/29/23 17:16 10 MG Iohexol 100 ml ONCE ONCE IV 05/29/23 16:45 05/29/23 16:46 DC 05/29/23 16:45 75 ML Metronidazole 100 ml @ 100 mls/hr ONCE ONCE IV 05/29/23 17:00 05/29/23 17:59 DC 05/29/23 17:16 100 MLS/HR Sodium Chloride 100 ml ONCE ONCE IV 05/29/23 16:45 05/29/23 16:46 DC 05/29/23 16:45 80 ML Vital Signs/I&O 05/29/23 05/29/23 15:29 19:10 Temp 36.7 Pulse 102 87 Resp 18 20 B/P (MAP) 109/76 (87) 126/82 Pulse Ox 97 99 Blood Pressure Mean: 87 (JON GUTIERREZ APRN) Lab Results Laboratory Tests Test 05/29/23 16:05 Range/Units White Blood Count 16.2 H 4.3-11.0 10^3/uL Red Blood Count 4.56 3.80-5.11 10^6/uL Hemoglobin 13.5 11.5-16.0 g/dL Hematocrit 41 35-52 % Mean Corpuscular Volume 91 80-99 fL Mean Corpuscular Hemoglobin 30 25-34 pg Mean Corpuscular Hemoglobin Concent 33 32-36 g/dL Red Cell Distribution Width 12.8 10.0-14.5 % Platelet Count 392 130-400 10^3/uL Mean Platelet Volume 9.2 9.0-12.2 fL Immature Granulocyte % (Auto) 1 % Neutrophils (%) (Auto) 75 42-75 % Lymphocytes (%) (Auto) 16 12-44 % Monocytes (%) (Auto) 7 0-12 % Eosinophils (%) (Auto) 1 0-10 % Basophils (%) (Auto) 0 0-10 % Neutrophils # (Auto) 12.2 H 1.8-7.8 10^3/uL Lymphocytes # (Auto) 2.6 1.0-4.0 10^3/uL Monocytes # (Auto) 1.1 H 0.0-1.0 10^3/uL Eosinophils # (Auto) 0.2 0.0-0.3 10^3/uL Basophils # (Auto) 0.1 0.0-0.1 10^3/uL Immature Granulocyte # (Auto) 0.1 0.0-0.1 10^3/uL Neutrophils % (Manual) 74 % Lymphocytes % (Manual) 18 % Monocytes % (Manual) 5 % Eosinophils % (Manual) 2 % Basophils % (Manual) 1 % Platelet Estimate ADEQUATE Blood Morphology Comment NORMAL Sodium Level 139 135-145 MMOL/L Potassium Level 4.0 3.6-5.0 MMOL/L Chloride Level 104 98-107 MMOL/L Carbon Dioxide Level 27 21-32 MMOL/L Anion Gap 8 5-14 MMOL/L Blood Urea Nitrogen 8 7-18 MG/DL Creatinine 0.71 0.60-1.30 MG/DL Estimat Glomerular Filtration Rate 122 BUN/Creatinine Ratio 11 Glucose Level 93 70-105 MG/DL Lactic Acid Level 0.69 0.50-2.00 MMOL/L Calcium Level 9.6 8.5-10.1 MG/DL Corrected Calcium 9.5 8.5-10.1 MG/DL Total Bilirubin 1.1 H 0.1-1.0 MG/DL Aspartate Amino Transf (AST/SGOT) 14 5-34 U/L Alanine Aminotransferase (ALT/SGPT) 26 0-55 U/L Alkaline Phosphatase 77 40-136 U/L Total Protein 7.1 6.4-8.2 GM/DL Albumin 4.1 3.2-4.5 GM/DL Serum Test, Qualitative NEGATIVE NEGATIVE My Orders Orders - HANDY,FANNY PHYSICAL SECURITY MANAGER Fentanyl Injection (Fentanyl Injection (05/29/23 17:26) Fentanyl Injection (Fentanyl Injection (05/29/23 17:26) Ua Culture If Indicated (05/29/23 18:19) Hcg,Qualitative Serum (05/29/23 18:25) Medications Given in ED Current Medications Medications Dose Ordered Sig/Jose Route Start Time Stop Time Status Last Admin Dose Admin Ceftriaxone Sodium 2000 mg/ Sodium Chloride 50 ml @ 100 mls/hr ONCE ONCE IV 05/29/23 17:00 05/29/23 17:29 DC 05/29/23 17:16 100 MLS/HR Dexamethasone Sodium Phosphate 10 mg ONCE ONCE IV 05/29/23 16:45 05/29/23 16:46 DC 05/29/23 17:16 10 MG Iohexol 100 ml ONCE ONCE IV 05/29/23 16:45 05/29/23 16:46 DC 05/29/23 16:45 75 ML Metronidazole 100 ml @ 100 mls/hr ONCE ONCE IV 05/29/23 17:00 05/29/23 17:59 DC 05/29/23 17:16 100 MLS/HR Sodium Chloride 100 ml ONCE ONCE IV 05/29/23 16:45 05/29/23 16:46 DC 05/29/23 16:45 80 ML Vital Signs/I&O 05/29/23 15:29 Temp 36.7 Pulse 102 Resp 18 B/P (MAP) 109/76 (87) Pulse Ox 97 (FANNY MURRELL) Progress Progress Note : Progress Note Seen and evaluated, resting comfortably in recliner, no acute distress. I am concerned for Ludewig's angina. Work-up initiated including CBC, CMP, lactic acid, blood cultures x2. CT of the neck and IV fluids ordered. 1637 Labs reviewed. CBC shows elevated WBC 16.2. CMP grossly normal. Lactic acid normal. Waiting on CT. Care handed off to Fanny Murrell APRN at this time. (JON GUTIERREZ APRN) Progress Note : Progress Note [address] results reviewed by myself and Dr. Moore. Patient receiving Flagyl and Rocephin. 1715 requesting additional pain medication, will give Fentanly 50 mcg IV. Continues to swallow liquids or soft foods without difficulty. [address] Choe for consult, awaiting return call [address] Choe, agreeable to have her admitted here with plan to I&D Abscess tomorrow. Dr. Milligan agreeable to admit, Anesthesia to consult. 1830 Anesthesia (Syd Norton CRNA) here to see patient. Reports pain improved, a fter receiving Fentanyl. 1845 Dr. Milligan her to see patient. (FANNY MURRELL) Diagnostic Imaging Diagonstic Imaging: CT Plain Films/CT/US/NM/MRI: other (neck, soft tissue) Comments NAME: YEN LUNDY MED REC#: [id number] PT STATUS: REG ER : 2000 PHYSICIAN: JON GUTIERREZ APRN ADMIT DATE: 05/29/23/ER Draft Date of Exam:05/29/23 CT NECK (SOFT TISSUE) W PROCEDURE: CT neck soft tissue with contrast. TECHNIQUE: Multiple contiguous axial images were obtained through the neck after the administration of contrast. Auto Exposure Controls were utilized during the CT exam to meet ALARA standards for radiation dose reduction. INDICATION: Left-sided neck swelling. COMPARISON: None available. FINDINGS: There is a 1.8 x 0.9 cm rim-enhancing fluid collection along the lingual surface of the left mandibular ramus near the roots of the mandibular molars. However, no periapical lucencies are noted. Dental caries are present in the left maxillary molar. Extensive soft tissue swelling and subcutaneous stranding is also present overlying the buccal surface of the left mandibular ramus. No additional fluid collections within the neck. Enlarged left level I and level II cervical lymph nodes are likely reactive in nature. The bilateral submandibular and parotid glands are normal in appearance. Thyroid is normal. Lung apices are clear. No retropharyngeal fluid collection. Cervical spine is normal in appearance. IMPRESSION: 1. Dental caries involving the left second mandibular molar have associated fluid collection along the lingual surface of the left hemimandible that is likely an abscess. Dictated on workstation # [id number] Dict: 05/29/23 1651 Trans: 05/29/23 165 [id number] Interpreted by: LALI LEE MD Electronically signed by: Reviewed: Reviewed by Me (FANNY MURRELL) Departure Impression Primary Impression: Submandibular abscess Disposition: ADMITTED INPATIENT Condition: Stable Admissions Decision to Admit/Date: May 29, 2023 Time/Decision to Admit Time: 17:00 (FANNY MURRELL) Departure-Patient Inst. Referrals: [facility] (PCP/Family) Primary Care Physician JON GUTIERREZ APRN May 29, 2023 15:51 FANNY MURRELL May 29, 2023 17:35
[2023-05-29] MEDS ORDERED: NS IV 1000 ML 1,000 ML IV SCH (16:00)
[2023-05-29 16:16] LABS: BASOPHILS # (AUTO) 0.1 10^3/uL (0.0-0.1); BASOPHILS % (AUTO) 0 % (0-10); EOSINOPHILS # (AUTO) 0.2 10^3/uL (0.0-0.3); EOSINOPHILS % (AUTO) 1 % (0-10); HEMATOCRIT 41 % (35-52); HEMOGLOBIN 13.5 g/dL (11.5-16.0); LYMPHOCYTES # (AUTO) 2.6 10^3/uL (1.0-4.0); LYMPHOCYTES % (AUTO) 16 % (12-44); MEAN CORPUSCULAR HEMOGLOBIN 30 pg (25-34); MEAN CORPUSCULAR HGB CONC 33 g/dL (32-36); MEAN CORPUSCULAR VOLUME 91 fL (80-99); MEAN PLATELET VOLUME 9.2 fL (9.0-12.2); MONOCYTES # (AUTO) 1.1 10^3/uL (0.0-1.0); MONOCYTES % (AUTO) 7 % (0-12); NEUTROPHILS # (AUTO) 12.2 10^3/uL (1.8-7.8); NEUTROPHILS % (AUTO) 75 % (42-75); PLATELET COUNT 392 10^3/uL (130-400); WHITE BLOOD COUNT 16.2 10^3/uL (4.3-11.0)
[2023-05-29 16:25] LABS: ALBUMIN 4.1 GM/DL (3.2-4.5)
[2023-05-29 16:27] LABS: CALCIUM 9.6 MG/DL (8.5-10.1)
[2023-05-29 16:28] LABS: TOTAL PROTEIN 7.1 GM/DL (6.4-8.2)
[2023-05-29 16:29] LABS: BILIRUBIN,TOTAL 1.1 MG/DL (0.1-1.0)
[2023-05-29 16:31] LABS: CREATININE SERUM 0.71 MG/DL (0.60-1.30)
[2023-05-29] MEDS ORDERED: dexAMETHasone INJ 10 MG/ML 1 ML VIAL IV ONE (16:45)
[2023-05-29] MEDS ORDERED: IOHEXOL 350 MG/ML 100 ML (OMNIPAQUE 350) VIAL IV ONE (16:45)
[2023-05-29] MEDS ORDERED: NS 100 ML (IVPB) BAG IV ONE (16:45)
[2023-05-29 16:56] LABS: BASOPHILS % (MANUAL) 1 %; EOSINOPHILS % (MANUAL) 2 %; LYMPHOCYTES % (MANUAL) 18 %; MONOCYTES % (MANUAL) 5 %; NEUTROPHILS % (MANUAL) 74 %; PLATELET ESTIMATE ADEQUATE; RBC MORPH NORMAL
--- NOTE | 2023-05-29 16:58 | Diagnostic Imaging Report ---
PROCEDURE: CT neck soft tissue with contrast. TECHNIQUE: Multiple contiguous axial images were obtained through the neck after the administration of contrast. Auto Exposure Controls were utilized during the CT exam to meet ALARA standards for radiation dose reduction. INDICATION: Left-sided neck swelling. COMPARISON: None available. FINDINGS: There is a 1.8 x 0.9 cm rim-enhancing fluid collection along the lingual surface of the left mandibular ramus near the roots of the mandibular molars. However, no periapical lucencies are noted. Dental caries are present in the left maxillary molar. Extensive soft tissue swelling and subcutaneous stranding is also present overlying the buccal surface of the left mandibular ramus. No additional fluid collections within the neck. Enlarged left level I and level II cervical lymph nodes are likely reactive in nature. The bilateral submandibular and parotid glands are normal in appearance. Thyroid is normal. Lung apices are clear. No retropharyngeal fluid collection. Cervical spine is normal in appearance. IMPRESSION: 1. Dental caries involving the left second mandibular molar have associated fluid collection along the lingual surface of the left hemimandible that is likely an abscess. Dictated by: Dictated on workstation # [id number]
[2023-05-29] MEDS ORDERED: metroNIDAZOLE 500MG/100ML IVPB 100 ML IV ONE (17:00)
[2023-05-29] MEDS ORDERED: cefTRIAXone INJECTION 2,000 MG in NS (IVPB) 50 ML 50 ML IV ONE (17:00)
[2023-05-29] MEDS ORDERED: cefTRIAXone 2,000 MG VIAL ONE (17:09)
[2023-05-29] MEDS ORDERED: fentaNYL INJECTION 100 MCG/2 ML VIAL ONE (17:26)
[2023-05-29] MEDS ORDERED: fentaNYL INJECTION 100 MCG/2 ML VIAL IVP STA (17:26)
[2023-05-29] MEDS ORDERED: ONDANSETRON 4 MG ORAL DISSOLVE TABLET PO PRN (20:45)
[2023-05-29] MEDS ORDERED: LACTULOSE SYRUP 10GM/15ML 30ML UDC PO PRN (20:45)
[2023-05-29] MEDS ORDERED: ONDANSETRON INJECTION 4 MG/2 ML (SDV) IV PRN (20:45)
[2023-05-29] MEDS ORDERED: ACETAMINOPHEN 325 MG TABLET PO PRN (20:45)
[2023-05-29] MEDS ORDERED: BISACODYL 10 MG SUPPOSITORY PR PRN (20:45)
[2023-05-29] MEDS ORDERED: MELATONIN 3 MG TABLET PO PRN (20:45)
[2023-05-29] MEDS ORDERED: HYDROmorphone INJECTION 2 MG/ML VIAL IV PRN (20:45)
[2023-05-29] MEDS ORDERED: diphenhydrAMINE 25 MG TABLET PO PRN (20:45)
[2023-05-29] MEDS ORDERED: ANTACID SUSPENSION 30 ML UDC PO PRN (20:45)
[2023-05-29] MEDS ORDERED: VANCOMYCIN INJECTION 0.1 MG in NS (IVPB) 250 ML 250 ML IV SCH (20:45)
[2023-05-29] MEDS ORDERED: CALCIUM CARBONATE 500 MG CHEW TABLET PO PRN (20:45)
[2023-05-29] MEDS ORDERED: MILK OF MAGNESIA 400 MG/5 ML 30 ML UDC PO PRN (20:45)
[2023-05-29] MEDS ORDERED: LORazepam 0.5 MG TABLET PO PRN (20:45)
[2023-05-29] MEDS ORDERED: diphenhydrAMINE INJ 50 MG/ML VIAL IVP PRN (20:45)
[2023-05-29 20:55] VITALS: BP 132/89
[2023-05-29] MEDS ORDERED: oxyCODONE IMMEDIATE RELEASE 5 MG TABLET ONE (21:00)
[2023-05-29 21:01] VITALS: BP 154/86
[2023-05-29] MEDS: oxyCODONE IMMEDIATE RELEASE 5 MG TABLET PO PRN (21:03)
--- NOTE | 2023-05-29 21:08 | History & Physical-Hospitalist ---
History of Present Illness HPI/Chief Complaint CC: Submandibular abscess in need of IV abx and I&D HPI: This is a 23yoWF w/h/o mental illness who presented to the ER with left facial swelling. Patient had been on my service at [facility] last week for IV abx then saw Dr Choe who recommended I&D but patient declined but the facial swelling had worsened so she will be placed on Meropenem and Vanc and Flagyl and undergo I&D tomorrow by Dr Choe. Source: patient Exam Limitations: clinical condition Date Seen 05/29/23 Time Seen by a Provider: 19:00 Attending Physician [place] PCP Admitting Physician: Kelsey Milligan DO Attending Physician: Kelsey Milligan DO Referring Physician Date of Admission May 29, 2023 at 20:42 Home Medications & Allergies Home Medications Reviewed patient Home Medication Reconciliation performed by pharmacy medication reconciliations cartographic technician and/or nursing. Patients Allergies have been reviewed. Allergies Allergies Coded Allergies Penicillins (Unverified Allergy, Severe, 11/05/18) Past Semutlt-Fjqijg-Yqajft Hx Patient Social History Marrital Status: cohabiting Employed/Student: unemployed Tobacco Use?: Yes Tobacco type used: Cigars Smoking Status: Current Everyday Smoker Use of E-Cig and/or Vaping dev: No Substance use?: No Alcohol Use?: No Pt feels they are or have been: No Immunizations Up To Date Tetanus Booster (TDap): Less Than 5 Years PED Vaccines UTD: Yes Seasonal Allergies Seasonal Allergies: No Current Status status: No status: No Advance Directives: No Communicates: Verbally Primary Language: Grenadian Preferred Spoken Language: Grenadian Is interpretation needed?: No Implanted or Applied Medical D: Orthopedic hardware Past Medical History Surgeries: Gallbladder Sexually Transmitted Disease: No HIV/AIDS: No Anxiety, Bipolar, Depression Blood Disorders: No Adverse Reaction/Blood Tranf: No Family Medical History Colon cancer 19 MOTHER (LIVER CANCER) Diabetes mellitus 19 MOTHER Hypertension 19 MOTHER No Family History of: AIDS Abdominal aortic aneurysm [place]'s disease Alcoholism Alzheimer's disease Aphasia Arthritis Asthma Cancer of mouth Cardiovascular disease Cataracts Completed stroke Congenital disease Congenital heart disease Coronary thrombosis Cystic fibrosis Deafness or hearing loss Dementia Drug abuse Dysphasia Fibrocystic disease of breast Gastroenteritis Glaucoma Headache disorder Hypercholesterolemia Infertility Kidney disease Myocardial infarction Neoplasm Not obtainable due to adoption Osteoporosis Parkinson's disease Prostate cancer Psychosocial problem Respiratory disorder Seizure disorder Severe allergy Thyroid disease Tuberculosis Visual disorder No Pertinent Family Hx Review of Systems Constitutional: see HPI Physical Exam Physical Exam Vital Signs Vital Signs - First Documented 05/29/23 05/29/23 15:29 20:50 Temp 36.7 Pulse 102 Resp 18 B/P (MAP) 109/76 (87) Pulse Ox 97 O2 Delivery Room Air Capillary Refill : Less Than 3 Seconds Height, Weight, BMI Height: 5'5.00" Weight: 130lbs. oz. 58.281621ye; 23.10 BMI Method:Stated General Appearance: No Apparent Distress, Chronically ill HEENT: Other (left mandible and cheek edematous) Respiratory: Lungs Clear, Normal Breath Sounds Cardiovascular: Regular Rate, Rhythm Neurologic/Psychiatric: Alert, Oriented x3, No Motor/Sensory Deficits, Normal Mood/Affect Results Results/Procedures Labs Laboratory Tests 05/29/23 16:05 Patient resulted labs reviewed. Assessment/Plan Admission Diagnosis Assessment: Submandibular abscess unresolved on abx Mental illness Plan: IV abx I&D tomorrow Admission Status: Inpatient Order (span 2 midnights) Reason for Inpatient Admission: OR Clinical Quality Measures DVT/VTE Risk/Contraindication: Contraindications-Pharm: Other *list below* Other: or KELSEY MILLIGAN DO May 29, 2023 21:08
[2023-05-29 21:11] VITALS: BP 153/104
[2023-05-29 21:42] VITALS: BP 149/90
[2023-05-29] MEDS ORDERED: VANCOMYCIN 1250 MG/NS 250 ML PREMIX IV SCH (23:00)
[2023-05-29] MEDS: NS IV 1000 ML 1,000 ML IV SCH (23:03)
[2023-05-29] MEDS: DOCUSATE SODIUM 100 MG CAPSULE PO SCH (23:10)
[2023-05-29] MEDS: SENNOSIDES 8.6 MG (SENOKOT) TAB PO SCH (23:11)
[2023-05-29 23:35] VITALS: BP 130/88
[2023-05-30] VITALS (14 sets, daily range): BP systolic 106–144; BP diastolic 68–99
[2023-05-30] MEDS: dexAMETHasone INJ 4 MG/ML SDV IV SCH ×3 (00:41→19:37)
[2023-05-30] MEDS: MEROPENEM INJECTION 500 MG in NS (IVPB) 100 ML 100 ML IV SCH ×4 (00:41→18:13)
[2023-05-30] MEDS: metroNIDAZOLE 500MG/100ML IVPB 100 ML IV SCH ×2 (04:58→18:13)
[2023-05-30 06:07] LABS: ALBUMIN 3.9 GM/DL (3.2-4.5); BILIRUBIN,TOTAL 0.7 MG/DL (0.1-1.0); CALCIUM 9.2 MG/DL (8.5-10.1); CREATININE SERUM 0.6 MG/DL (0.60-1.30); POTASSIUM 4.1 MMOL/L (3.6-5.0)
[2023-05-30 06:13] LABS: BASOPHILS % (AUTO) 0 % (0-10); EOSINOPHILS % (AUTO) 0 % (0-10); HEMATOCRIT 44 % (35-52); HEMOGLOBIN 14.3 g/dL (11.5-16.0); LYMPHOCYTES # (AUTO) 0.9 10^3/uL (1.0-4.0); LYMPHOCYTES % (AUTO) 5 % (12-44); MEAN CORPUSCULAR HEMOGLOBIN 29 pg (25-34); MEAN CORPUSCULAR HGB CONC 33 g/dL (32-36); MEAN CORPUSCULAR VOLUME 90 fL (80-99); MEAN PLATELET VOLUME 10.2 fL (9.0-12.2); MONOCYTES # (AUTO) 0.1 10^3/uL (0.0-1.0); MONOCYTES % (AUTO) 1 % (0-12); NEUTROPHILS # (AUTO) 15.9 10^3/uL (1.8-7.8); NEUTROPHILS % (AUTO) 93 % (42-75); PLATELET COUNT 384 10^3/uL (130-400)
--- NOTE | 2023-05-30 07:07 | Progress Note - Hospitalist ---
Subjective HPI/CC On Admission Date Seen by Provider: May 30, 2023 Time Seen by Provider: 10:00 CC: Submandibular abscess in need of IV abx and I&D HPI: This is a 23yoWF w/h/o mental illness who presented to the ER with left facial swelling. Patient had been on my service at [facility] last week for IV abx then saw Dr Choe who recommended I&D but patient declined but the facial swelling had worsened so she will be placed on Meropenem and Vanc and Flagyl and undergo I&D tomorrow by Dr Choe. Subjective/Events-last exam Patient doing well Less swelling Incision and drainage today IV antibiotics maintained Labs reviewed Review of Systems General: Fatigue, Malaise Focused Exam Lactate Level 05/29/23 16:05: Lactic Acid Level 0.69 Objective Exam Vital Signs Vital Signs Date Time Temp Pulse Resp B/P (MAP) Pulse Ox O2 Delivery O2 Flow Rate FiO2 05/30/23 16:14 36.3 80 20 132/85 (101) 98 Room Air 05/30/23 14:20 3.00 Capillary Refill : Less Than 3 Seconds General Appearance: No Apparent Distress, WD/WN, Chronically ill HEENT: Other (Left facial and neck edema much improved less erythema) Respiratory: Lungs Clear, Normal Breath Sounds Cardiovascular: Regular Rate, Rhythm Results/Procedures Lab Laboratory Tests 05/30/23 05:07 05/30/23 05:40 Patient resulted labs reviewed. Assessment/Plan Assessment and Plan Assess & Plan/Chief Complaint Assessment: Submandibular abscess unresolved on abx Mental illness Plan: IV abx I&D today Clinical Quality Measures DVT/VTE Risk/Contraindication: Contraindications-Pharm: Other *list below* Other: or ALEXIS LONGORIA DO May 30, 2023 07:07
[2023-05-30] MEDS: DOCUSATE SODIUM 100 MG CAPSULE PO SCH ×2 (08:02→19:36)
[2023-05-30] MEDS: oxyCODONE IMMEDIATE RELEASE 5 MG TABLET PO PRN ×3 (08:02→22:14)
[2023-05-30] MEDS: SENNOSIDES 8.6 MG (SENOKOT) TAB PO SCH ×2 (08:02→19:36)
[2023-05-30] MEDS: VANCOMYCIN 1 GM/NS 250 ML IVPB IV SCH ×4 (08:04→15:41)
[2023-05-30] MEDS ORDERED: NORE0.356 PO (09:51)
[2023-05-30] MEDS ORDERED: CLIN150C20 PO (09:51)
[2023-05-30] MEDS ORDERED: IBUP-1773 PO (09:51)
[2023-05-30] MEDS: NS IV 1000 ML 1,000 ML IV SCH ×2 (11:04→19:37)
[2023-05-30] MEDS ORDERED: LIDOCAINE 1% w/EPI 1:100,000 20 ML VIAL ONE (11:55)
[2023-05-30] MEDS ORDERED: fentaNYL INJECTION 100 MCG/2 ML VIAL ONE (12:15)
[2023-05-30] MEDS ORDERED: MIDAZOLAM INJ 2 MG/2 ML VIAL ONE (12:15)
[2023-05-30] MEDS ORDERED: LACTATED RINGERS 1,000 ML 1,000 ML IV PRN (12:30)
[2023-05-30] MEDS ORDERED: PHENYLEPHRINE 0.5% (REGULAR) NASAL SPRAY 15 ML ONE (12:37)
[2023-05-30] MEDS ORDERED: ROCURONIUM 50 MG/5 ML VIAL IV ONE (13:04)
[2023-05-30] MEDS ORDERED: LIDOCAINE PF 2% 5 ML VIAL ONE (13:04)
[2023-05-30] MEDS ORDERED: proPOfol INJECTION 200 MG/20 ML VIAL IV ONE (13:04)
[2023-05-30] MEDS ORDERED: SEVOFLURANE (ULTANE) 15 ML INHAL SOLN ONE (13:04)
[2023-05-30] MEDS ORDERED: dexAMETHasone INJ 10 MG/ML 1 ML VIAL ONE (13:05)
[2023-05-30] MEDS ORDERED: ONDANSETRON INJECTION 4 MG/2 ML (SDV) ONE (13:05)
[2023-05-30] MEDS ORDERED: SUGAMMADEX 500 MG/5 ML VIAL (BRIDION) IV ONE (13:27)
[2023-05-30] MEDS ORDERED: morphine INJ 10 MG/ML 1ML (SYR OR VIAL) IVP ONE (13:45)
[2023-05-30] MEDS ORDERED: fentaNYL INJECTION 100 MCG/2 ML VIAL IVP ONE (13:45)
[2023-05-30] MEDS ORDERED: MEPERIDINE INJ 50 MG/ML VIAL IVP ONE (13:45)
[2023-05-30] MEDS ORDERED: ONDANSETRON INJECTION 4 MG/2 ML (SDV) IVP PRN (13:45)
[2023-05-30] MEDS ORDERED: NS IV 1000 ML 1,000 ML IV SCH (21:11)
[2023-05-30] MEDS: CLINDAMYCIN 300 MG/50 ML IVPB 50 ML IV SCH (22:14)
[2023-05-30] MEDS ORDERED: TROUGH ORDER-PHARMACY XX NR (23:00)
[2023-05-31 03:21] VITALS: BP 134/75
[2023-05-31] MEDS: oxyCODONE IMMEDIATE RELEASE 5 MG TABLET PO PRN ×2 (05:23→10:25)
[2023-05-31] MEDS: CLINDAMYCIN 300 MG/50 ML IVPB 50 ML IV SCH (05:23)
[2023-05-31 05:59] LABS: BASOPHILS % (AUTO) 0 % (0-10); EOSINOPHILS % (AUTO) 0 % (0-10); HEMATOCRIT 38 % (35-52); HEMOGLOBIN 12.4 g/dL (11.5-16.0); LYMPHOCYTES # (AUTO) 2.2 10^3/uL (1.0-4.0); LYMPHOCYTES % (AUTO) 10 % (12-44); MEAN CORPUSCULAR HEMOGLOBIN 29 pg (25-34); MEAN CORPUSCULAR HGB CONC 33 g/dL (32-36); MEAN CORPUSCULAR VOLUME 89 fL (80-99); MEAN PLATELET VOLUME 9.5 fL (9.0-12.2); MONOCYTES # (AUTO) 1.1 10^3/uL (0.0-1.0); MONOCYTES % (AUTO) 5 % (0-12); NEUTROPHILS # (AUTO) 19.3 10^3/uL (1.8-7.8); NEUTROPHILS % (AUTO) 85 % (42-75); PLATELET COUNT 456 10^3/uL (130-400); WHITE BLOOD COUNT 22.7 10^3/uL (4.3-11.0)
[2023-05-31 06:13] LABS: ALBUMIN 3.5 GM/DL (3.2-4.5); BILIRUBIN,TOTAL 0.5 MG/DL (0.1-1.0); CALCIUM 8.6 MG/DL (8.5-10.1); CREATININE SERUM 0.6 MG/DL (0.60-1.30); TOTAL PROTEIN 6.2 GM/DL (6.4-8.2)
[2023-05-31 07:18] VITALS: BP 123/78
[2023-05-31] MEDS: SENNOSIDES 8.6 MG (SENOKOT) TAB PO SCH (08:33)
[2023-05-31] MEDS: DOCUSATE SODIUM 100 MG CAPSULE PO SCH (08:33)
[2023-05-31] MEDS: dexAMETHasone INJ 4 MG/ML SDV IV SCH (08:34)
[2023-05-31 11:20] VITALS: BP 125/75
--- NOTE | 2023-05-31 11:56 | Progress Note - Hospitalist ---
Subjective HPI/CC On Admission Date Seen by Provider: May 31, 2023 CC: Submandibular abscess in need of IV abx and I&D HPI: This is a 23yoWF w/h/o mental illness who presented to the ER with left facial swelling. Patient had been on my service at [facility] last week for IV abx then saw Dr Choe who recommended I&D but patient declined but the facial swelling had worsened so she will be placed on Meropenem and Vanc and Flagyl and undergo I&D tomorrow by Dr Choe. Focused Exam Lactate Level 05/29/23 16:05: Lactic Acid Level 0.69 Objective Exam Vital Signs Vital Signs Date Time Temp Pulse Resp B/P (MAP) Pulse Ox O2 Delivery O2 Flow Rate FiO2 05/31/23 11:20 36.6 77 18 125/75 (92) 99 Room Air 05/30/23 14:20 3.00 Capillary Refill : Less Than 3 SecondsLess Than 3 Seconds Results/Procedures Lab Laboratory Tests 05/31/23 05:28 Patient resulted labs reviewed. Assessment/Plan Assessment and Plan Assess & Plan/Chief Complaint Assessment: Submandibular abscess unresolved on abx Mental illness Plan: IV abx I&D today Clinical Quality Measures DVT/VTE Risk/Contraindication: Contraindications-Pharm: Other *list below* Other: or ALEXIS LONGORIA DO May 31, 2023 11:56
--- NOTE | 2023-05-31 13:07 | Discharge Summary ---
Discharge Summary Hospital Course Was the Problem List Reviewed?: Yes Problems/Dx: (1) Submandibular abscess Status: Acute Hospital Course Date of Admission: May 29, 2023 at 20:42 Admission Diagnosis : [facility] [place] Date of Discharge: 05/31/23 Discharge Diagnosis: [ ] Hospital Course: Uneventful hospital course after she was admitted for left-sided submandibular abscess unresolved with clindamycin. She did require incision and drainage by Dr. Choe. Overall she did well her labs were improved and she was deemed stable for discharge. Labs and Pending Lab Test: Laboratory Tests 05/31/23 05:28: White Blood Count 22.7H, Red Blood Count 4.23, Hemoglobin 12.4, Hematocrit 38, Mean Corpuscular Volume 89, Mean Corpuscular Hemoglobin 29, Mean Corpuscular Hem oglobin Concent 33, Red Cell Distribution Width 12.5, Platelet Count 456H, Mean Platelet Volume 9.5, Immature Granulocyte % (Auto) 1, Neutrophils (%) (Auto) 85H , Lymphocytes (%) (Auto) 10L, Monocytes (%) (Auto) 5, Eosinophils (%) (Auto) 0, Basophils (%) (Auto) 0, Neutrophils # (Auto) 19.3H, Lymphocytes # (Auto) 2.2, Monocytes # (Auto) 1.1H, Eosinophils # (Auto) 0.0, Basophils # (Auto) 0.0, Immature Granulocyte # (Auto) 0.1, Sodium Level 138, Potassium Level 4.0, Chloride Level 108H, Carbon Dioxide Level 25, Anion Gap 5, Blood Urea Nitrogen 8, Creatinine 0.60, Estimat Glomerular Filtration Rate 128, BUN/Creatinine Ratio 13, Glucose Level 128H, Calcium Level 8.6, Corrected Calcium 9.0, Total Bilirubin 0.5, Aspartate Amino Transf (AST/SGOT) 13, Alanine Aminotransferase (ALT/SGPT) 16, Alkaline Phosphatase 70, Total Protein 6.2L, Albumin 3.5 Microbiology 05/30/23 Gram Stain - Final, Resulted 05/30/23 Anaerobic Culture, Resulted Pending 05/30/23 Surgical Culture - Preliminary, Resulted Culture In Progress 05/29/23 Blood Culture - Preliminary, Resulted Probable Coag Negative Staph Home Meds Active Reported Clindamycin HCl 150 Mg Capsule 300 Mg PO QID TAKES 2 (150MG) CAPS FILLED 05-24-2023 #40/5 DAY SUPPLY Rachel-Be (Norethindrone) 0.35 Mg Tablet 1 Ea PO DAILY Ibuprofen 600 Mg Tablet 600 Mg PO Q8H PRN Assessment/Pt Instructions PCP in 1 week Discharge Planning: <30 minutes discharge planning Discharge Physical Examination Vital Signs Vital Signs Date Time Temp Pulse Resp B/P (MAP) Pulse Ox O2 Delivery O2 Flow Rate FiO2 05/31/23 11:20 36.6 77 18 125/75 (92) 99 Room Air 05/30/23 14:20 3.00 General Appearance: No Apparent Distress, WD/WN, Chronically ill Allergies: Coded Allergies: Penicillins (Unverified Allergy, Severe, 11/05/18) Discharge Summary Date of Admission May 29, 2023 at 20:42 Date of Discharge Discharge Date: May 31, 2023 Admission Diagnosis Assessment: Submandibular abscess unresolved on abx Mental illness Plan: IV abx I&D tomorrow Discharge Diagnosis Assessment: Submandibular abscess unresolved on abx Mental illness Plan: IV abx I&D today Clinical Quality Measures DVT/VTE Risk/Contraindication: Contraindications-Pharm: Other *list below* Other: or ALEXIS LONGORIA DO May 31, 2023 13:07
[2023-05-31 13:44] VITALS: BP 125/75
--- NOTE | 2023-06-01 10:16 | Anesthesia-General Post-Op ---
General Patient Condition Mental Status/LOC: Same as Preop Cardiovascular: Satisfactory Nausea/Vomiting: Absent Respiratory: Satisfactory Pain: Controlled Complications: Absent Post Op Complications Complications None Follow Up Care/Instructions Patient Instructions None needed. Anesthesia/Patient Condition Patient Condition Patient is doing well, no complaints, stable vital signs, no apparent adverse anesthesia problems. No complications reported per nursing. DEDRA KEBEDE CRNA Jun 01, 2023 10:16
== END 2023-05-31 13:51 | disposition home or self-care (01) | DRG 159 ==
LOC: EDUNIT# 15:23 → ER 15:27 → 4TH 19:20 → OBSVTOIN 20:42
PROVIDERS: ADMIT Internal Medicine; ATTEND Internal Medicine
DX: K12.2 Cellulitis and abscess of mouth (principal); F31.9 Bipolar disorder, unspecified; F41.9 Anxiety disorder, unspecified; F17.290 Nicotine dependence, other tobacco product, uncomplicated; Z28.310 Unvaccinated for COVID-19
CPT/HCPCS: 36415; 70491; 80053; 83605; 84703; 85007; 85025; 85027; 87040; 87070; 87075; 87077; 87205; 93041